=== PATIENT | female | born 1985 | race African-American/Black ===

== ENCOUNTER 2017-01-05 17:26 | Emergency (ER) | payer MEDICAID ==
[~2017-01-05] VITALS: Ht 165.1 cm; Wt 55.3 kg
[2017-01-05 19:43] VITALS: BP 110/75
[2017-01-05] MEDS ORDERED: LIDOCAINE 1% HCL (LOCAL ANESTH.) INJ 20ML MDV IJ ONE (19:45)
== END 2017-01-05 20:36 | disposition home or self-care (01) ==
LOC: ER 17:34
DX: L02.411 Cutaneous abscess of right axilla (principal)
CPT/HCPCS: 10060; 87205; 99283; J2001

== ENCOUNTER 2017-01-08 18:27 | Emergency (ER) | payer MEDICAID ==
[~2017-01-08] VITALS: Ht 165.1 cm; Wt 55.3 kg
[2017-01-08 20:04] VITALS: BP 115/70
== END 2017-01-08 19:57 | disposition home or self-care (01) ==
LOC: ER 18:58
DX: L02.413 Cutaneous abscess of right upper limb (principal); Z48.00 Encounter for change or removal of nonsurgical wound dressing